=== PATIENT | female | born 1935 | race Caucasian/White ===

== ENCOUNTER 2020-02-03 14:30 | Outpatient (RCR) | payer MEDICARE, BC | END 2020-02-03 15:00 | disposition still patient (30) | LOC: PT 14:30 | DX: M51.36 Other intervertebral disc degeneration, lumbar region (principal) ==

== ENCOUNTER → 2021-02-10 | Outpatient (CLI) | payer MEDICARE, BC ==
[~2021-02-10] MED LIST: ASPIRIN 32325 MG/TAB PO; B-121000 MCG PO; COZAAR 50MG50 MG/TAB PO; DAILY VALUE1 EACH PO; DOCUSATE SODIU1 EACH PO; FERROUS SULFAT325 M4 PO; KLOR-CON M1010 MEQ PO; PHARMASSURE FO0.4 MG PO; ROXICODONE 55 MG/TAB PO; SOTALOL HYDROCH80 MG PO; TRAMADOL 50 MG TAB PO; VITAMIN D325 MC2 PO
== END ==
LOC: PT 13:56
DX: M16.11 Unilateral primary osteoarthritis, right hip (principal)

== ENCOUNTER 2021-03-02 12:40 | Inpatient (IN) | payer MEDICARE, BC ==
[~2021-03-02] VITALS: Ht 160 cm; Wt 99.9 kg
[2021-03-02] MEDS ORDERED: ASPIRIN 32325 MG/TAB PO (15:10)
[2021-03-02] MEDS ORDERED: VITAMIN D325 MC2 PO (15:12)
[2021-03-02] MEDS ORDERED: B-121000 MCG PO (15:12)
[2021-03-02] MEDS ORDERED: FERROUS SULFAT325 M4 PO (15:13)
[2021-03-02] MEDS ORDERED: DOCUSATE SODIU1 EACH PO (15:13)
[2021-03-02] MEDS ORDERED: PHARMASSURE FO0.4 MG PO (15:14)
[2021-03-02] MEDS ORDERED: COZAAR 50MG50 MG/TAB PO (15:14)
[2021-03-02] MEDS ORDERED: DAILY VALUE1 EACH PO (15:15)
[2021-03-02] MEDS ORDERED: SOTALOL HYDROCH80 MG PO (15:16)
[2021-03-02] MEDS ORDERED: KLOR-CON M1010 MEQ PO (15:16)
[2021-03-02] MEDS ORDERED: ROXICODONE 55 MG/TAB PO (15:17)
[2021-03-02] MEDS ORDERED: TRAMADOL 50 MG TAB PO (15:18)
[2021-03-02 17:46] VITALS: BP 135/88
[2021-03-03 00:35] LABS: URINE APPEARANCE CLEAR; URINE BILIRUBIN NEGATIVE (NEGATIVE); URINE BLOOD NEGATIVE (NEGATIVE); URINE COLOR YELLOW; URINE GLUCOSE NEGATIVE (NEGATIVE); URINE KETONE NEGATIVE (NEGATIVE); URINE LEUKOCYTE ESTERASE NEGATIVE (NEGATIVE); URINE NITRATE NEGATIVE (NEGATIVE); URINE PROTEIN(semi-quant) NEGATIVE (NEGATIVE); URINE UROBILINOGEN NORMAL (NORMAL); URINE WBC 0-1 /hpf (0-3)
[2021-03-03 05:39] VITALS: BP 105/65
[2021-03-03 07:25] LABS: BASO # 0.03 (0.02-0.10); EOS # 0.26 (0.04-0.40); EOS % 2.4 % (1.0-5.0); HEMATOCRIT 31.8 % (37.0-47.0); LYMPH# 2.09 (1.50-4.00); MEAN CELL VOLUME 99 fl (78-100); MEAN CORPUSCULAR HEMOGLOBIN 31 pg (27-31); MEAN CORPUSCULAR HGB CONC 31 g/dL (33-37); MEAN PLATELET VOLUME 9.8 fl (7.4-10.4); MONO # 1.05 (0.20-0.80); NEU # 7.53 (1.40-6.50); PLATELET COUNT 195 K/mm3 (130-400); RED CELL DISTRIBUTION WIDTH 14.3 % (11.5-14.5); WHITE BLOOD COUNT 11.1 K/mm3 (4.8-10.8)
[2021-03-03 07:57] LABS: ALBUMIN 2.8 g/dL (3.4-4.8); POTASSIUM 4.9 mmol/L (3.5-5.1); SODIUM 137 mmol/L (136-145)
[2021-03-03 07:58] LABS: CALCIUM 9.2 mg/dL (8.3-10.5)
[2021-03-03 07:59] LABS: GLUCOSE 90 mg/dL (65-105)
[2021-03-03 08:00] LABS: TOTAL PROTEIN 5.6 g/dL (6.2-8.1)
[2021-03-03 08:01] LABS: CARBON DIOXIDE 21 mmol/L (23-31); TOTAL BILIRUBIN 0.3 mg/dL (0.2-1.2)
[2021-03-03 08:05] LABS: AST-SGOT 19 U/L (5-34)
[2021-03-03 08:12] LABS: ALT/SGPT < 6 U/L (0-55)
[2021-03-03 09:00] VITALS: BP 147/75
[2021-03-03 17:09] VITALS: BP 113/72
[2021-03-04 06:19] VITALS: BP 104/6
[2021-03-04 17:45] VITALS: BP 100/62
[2021-03-05 05:59] VITALS: BP 129/80
[2021-03-05 17:19] VITALS: BP 143/80
[2021-03-06 06:19] VITALS: BP 134/75
[2021-03-06 17:07] VITALS: BP 137/80
[2021-03-07 05:53] VITALS: BP 115/52
[2021-03-07 17:15] VITALS: BP 111/73
[2021-03-08 05:43] VITALS: BP 118/71
[2021-03-08 17:04] VITALS: BP 120/77
[2021-03-09 06:10] VITALS: BP 125/69
== END 2021-03-09 12:25 | disposition home or self-care (01) | DRG 561 ==
LOC: MED/SURG 12:40
PROVIDERS: Nurse Practitioner Family; ADMIT Internal Medicine
DX: Z47.1 Aftercare following joint replacement surgery (principal); I10 Essential (primary) hypertension; D50.9 Iron deficiency anemia, unspecified; D51.9 Vitamin B12 deficiency anemia, unspecified; E55.9 Vitamin D deficiency, unspecified; E66.01 Morbid (severe) obesity due to excess calories; M19.90 Unspecified osteoarthritis, unspecified site; Z68.39 Body mass index [BMI] 39.0-39.9, adult; K59.00 Constipation, unspecified; R53.81 Other malaise; Z79.82 Long term (current) use of aspirin; Z79.891 Long term (current) use of opiate analgesic

== ENCOUNTER 2021-03-10 12:50 | Outpatient (RCR) | payer MEDICARE, BC | END 2021-04-17 17:00 | LOC: PT 12:50 | DX: Z96.641 Presence of right artificial hip joint (principal) ==